=== PATIENT | female | born 1995 | race Two or more races ===

== ENCOUNTER 2022-12-11 10:14 | Emergency (ER) | payer OTHER ==
[2022-12-11 10:21] VITALS: TEMP 98; BMI 36.0
[2022-12-11 11:26] VITALS: BP 130/85; PULSE 70; RESP 16
== END 2022-12-11 12:13 | disposition home or self-care (01) ==
LOC: JER 10:14
DX: R10.13 Epigastric pain (principal); R11.10 Vomiting, unspecified; A09 Infectious gastroenteritis and colitis, unspecified
CPT/HCPCS: 99282-25